=== PATIENT | female | born 1985 | race Caucasian/White ===

== ENCOUNTER 2020-01-08 09:09 | Emergency (ER) | payer MEDICAID, SELFPAY ==
[2020-01-08 09:14] VITALS: BP 131/86; PULSE 90; RESP 15; TEMP 36.8; O2SAT 98
[2020-01-08] MEDS: Tetracaine 0.5% 4 ML BTL (09:19)
[2020-01-08] MEDS: Fluorescein STRIPS 100/BOX 1 MG (09:19)
[2020-01-08] MEDS: Balanced Salt Solution 15 ML BTL (09:19)
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
[2020-01-08] MEDS: Erythromycin Ophth Oint 3.5 GM TUBE OS (10:19)
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
== END 2020-01-08 12:26 | disposition home or self-care (01) ==
PROVIDERS: Emergency Provider Physician Assistant
DX: S05.01XA Injury of conjunctiva and corneal abrasion without foreign body, right eye, initial encounter (principal); W55.42XA Struck by pig, initial encounter
CPT/HCPCS: 99284; 70486; 99283

== ENCOUNTER 2020-08-11 21:49 | Emergency (ER) | payer MEDICAID, SELFPAY ==
[2020-08-11 22:08] VITALS: BP 129/85; PULSE 129; RESP 22; TEMP 36.5; O2SAT 99
[2020-08-11 22:37] LABS: Abs Immature Grans 0.08 10^3/uL (0.0-0.06); Absolute Basophil Count 0.05 10^3/uL (0.0-0.2); Absolute Eosinophil Count 0.03 10^3/uL (0.0-0.7); Absolute Lymphocyte Count 2.42 10^3/uL (1.2-3.4); Absolute Monocyte Count 0.55 10^3/uL (0.1-0.8); Absolute Neutrophil Count 7.78 10^3/uL (1.2-6.7); Basophils % 0.5; Eosinophils % 0.3; HCT 41.1 % (36.0-46.0); HGB 13.7 g/dL (11.2-15.7); Immature Grans % 0.7; Lymphocytes % 22.2; MCH 30.7 pg (27.0-33.0); MCHC 33.3 % (32.0-36.0); MCV 92.2 fL (80-95); MPV 9.9 fL (8.0-11.0); Neutrophils % 71.3; Nucleated RBC 0 %; Platelet Count 335 10^3/uL (130-400); RBC 4.46 10^6/uL (3.93-5.22); RDW-SD 43.6 fL; WBC 10.91 10^3/uL (4.4-10.8)
[2020-08-11] MEDS: ACETAMINOPHEN 1,000 MG/100 ML BTL 400 MG IVPB (22:37)
[2020-08-11 22:49] LABS: Bilirubin Negative (Negative); Blood Negative (Negative); Clarity Clear (Clear); Glucose Negative (Negative); Ketones Negative (Negative); Leukocyte Esterase Negative (Negative); Nitrite Negative (Negative); Specific Gravity <= 1.005 (1.005-1.025); Urobilinogen 0.2 EU/dL (Up TO 0.2)
[2020-08-11 22:51] LABS: ALT 32 U/L (14-59); AST 27 U/L (15-37); Albumin 4.2 g/dL (3.4-5.0); Alkaline Phosphatase 90 U/L (46-116); Anion Gap 12.1 mmol/L (3-11); BUN 9 mg/dL (7-18); Bilirubin, Total 0.5 mg/dL (0.2-1.0); CO2 23.9 mmol/L (21.0-32.0); CREATININE 0.9 mg/dL (0.55-1.02); Calcium 8.4 mg/dL (8.5-10.1); Chloride 109 mmol/L (98-107); ETHANOL BLOOD 199.7 mg/dL (<3); Glucose 104 mg/dL (74-106); Lipase 86 U/L (73-393); Potassium 3.8 mmol/L (3.5-5.1); Sodium 145 mmol/L (136-145); Total Protein 7.7 g/dL (6.4-8.2)
[2020-08-11] MEDS: Normal Saline - Diluent 50 ML VIAL IV (22:55)
[2020-08-11] MEDS: Omnipaque 350 MG/ML 100 ML BTL IJ (22:56)
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
[2020-08-12 00:41] VITALS: BP 117/75; PULSE 94; RESP 16; TEMP 36.6; O2SAT 96
--- NOTE | 2020-08-12 00:43 | NUR.NOTE ---
Pt remains in c-collar, A&Ox3. Awaiting transport to [facility] via [facility].
== END 2020-08-12 00:55 | disposition short-term general hospital (02) ==
LOC: ER 08-12 00:43
PROVIDERS: Emergency Provider Student in an Organized Health Care Education/Training Program
DX: S06.6X0A Traumatic subarachnoid hemorrhage without loss of consciousness, initial encounter (principal); M25.552 Pain in left hip; M54.2 Cervicalgia; Y04.2XXA Assault by strike against or bumped into by another person, initial encounter; Y30.XXXA Falling, jumping or pushed from a high place, undetermined intent, initial encounter
CPT/HCPCS: 80053; 81025; 83690; 96365; 99291; 70450; 70486; 71045; 72125; 74177; 80320; 81003; 85025; J0131; J3490

== ENCOUNTER 2021-07-26 01:16 | Emergency (ER) | payer MEDICAID, SELFPAY ==
[2021-07-26 01:21] VITALS: BP 128/83; PULSE 87; RESP 18; TEMP 36.8; O2SAT 99
--- NOTE | 2021-07-26 01:30 | DI.CT_ITS ---
Exam(s) CT RENAL COLIC WO EXAM: CT RENAL COLIC WO CLINICAL HISTORY: left flank pain. TECHNIQUE: Imaging Protocol: Axial computed tomography images with coronal and sagittal reformatted images were created and reviewed. CONTRAST MATERIAL: Noncontrast COMPARISON: CT CT ABDOMEN PELVIS W from 08/11/2020 FINDINGS: ABDOMEN: Lung Bases: Normal where visualized. Liver: Normal attenuation. No measurable mass. Gallbladder and biliary tract: No radiodense calculus or dilation. Pancreas: Normal density, no calcifications or inflammatory process. Spleen: Normal. Kidneys: Normal size, contour and axis. No radiodense stones or obstructive uropathy. No masses seen. Adrenal glands: No masses seen. Abdominal Aorta: Abdominal portion non-dilated. Soft tissues: Unremarkable. PELVIS: Bladder: Symmetric distention, no gross wall thickening. Bowel: No obstruction or bowel wall thickening. Peritoneal cavity: No ascites or abscess collection. No free air. Reproductive: Uterus normal size. High-density material air material around the left ovary could ind icate ruptured ovarian cyst. The left ovary appeared normal in the prior exam. Bones: Within normal limits. IMPRESSION: High-density material around the left ovary may represent hemorrhagic cyst. Torsion and ectopic preg maximo not excluded. Pelvic pelvic ultrasound recommended for further evaluation. RADIATION DOSE DELIVERED: 712.57mGy.cm Total DLP DATA REPOSITORY: All CT scans at this facility are submitted to the National Radiology Data Registry (NRDR) Dose Index Registry (DIR) with the [employer] (A[employer]). RADIATION OPTIMIZATION: All CT scans at this facility use at least one of these dose optimization te chniques: automated exposure control; mA and/or kV adjustment per patient size (includes targeted exa ms where dose is matched to clinical indication); or iterative reconstruction.
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
[2021-07-26 01:46] LABS: Abs Immature Grans 0.04 10^3/uL (0.0-0.06); Absolute Basophil Count 0.03 10^3/uL (0.0-0.2); Absolute Eosinophil Count 0.15 10^3/uL (0.0-0.7); Absolute Lymphocyte Count 3.27 10^3/uL (1.2-3.4); Absolute Monocyte Count 0.55 10^3/uL (0.1-0.8); Absolute Neutrophil Count 5.36 10^3/uL (1.2-6.7); Basophils % 0.3; Eosinophils % 1.6; HCT 37.2 % (36.0-46.0); HGB 12.6 g/dL (11.2-15.7); Immature Grans % 0.4; Lymphocytes % 34.8; MCH 29.5 pg (27.0-33.0); MCHC 33.9 % (32.0-36.0); MCV 87 fL (80-95); Monocytes % 5.9; Platelet Count 341 10^3/uL (130-400); RBC 4.27 10^6/uL (3.93-5.22); RDW 12.7 % (11.7-14.6); RDW-SD 40.3 fL
[2021-07-26] MEDS: Ondansetron 4 MG/2 ML VIAL IVP (01:54)
[2021-07-26] MEDS: Ketorolac 15 MG/ML VIAL IVP ×2 (01:55→06:20)
[2021-07-26] MEDS: Normal Saline 1,000 ML 1000 ML IV (01:55)
[2021-07-26 01:59] LABS: ALT 28 U/L (14-59); AST 17 U/L (15-37); Albumin 3.8 g/dL (3.4-5.0); Alkaline Phosphatase 71 U/L (46-116); Anion Gap 9.8 mmol/L (3-11); BUN 16 mg/dL (7-18); Bilirubin, Direct 0.1 mg/dL (0.0-0.2); Bilirubin, Total 0.6 mg/dL (0.2-1.0); CO2 24.2 mmol/L (21.0-32.0); CREATININE 0.8 mg/dL (0.55-1.02); Calcium 8.4 mg/dL (8.5-10.1); Chloride 110 mmol/L (98-107); Glucose 101 mg/dL (74-106); Lipase 80 U/L (73-393); Magnesium 1.8 mg/dL (1.8-2.4); Potassium 3.8 mmol/L (3.5-5.1); Sodium 144 mmol/L (136-145); Total Protein 6.9 g/dL (6.4-8.2)
[2021-07-26 02:22] LABS: Bilirubin Small (Negative); Blood Large (Negative); Clarity Cloudy (Clear); Glucose Negative (Negative); Ketones Trace mg/dL (Negative); Leukocyte Esterase Negative (Negative); Nitrite Positive (Negative); Specific Gravity >= 1.030 (1.005-1.025); pH 5.5 (5-8)
[2021-07-26 02:25] LABS: C & S Indicated? Yes
[2021-07-26 02:26] LABS: RBC >50 HPF (0-2)
--- NOTE | 2021-07-26 03:54 | DI.VRAD_ITS ---
Addendum created by Helder Zamora MD on 07/26/2021 4:01:54 AM EDT: Left adnexa/ovary measures up to 5.8x 4.8 x 3.8 cm in AP, superior to inferior and medial to lateral dimensions respectively Addendum created by Helder Zamora MD on 07/26/2021 3:54:57 AM EDT: THIS REPORT CONTAINS FINDINGS THAT MAY BE CRITICAL TO PATIENT CARE. The findings were verbally communicated via telephone conference with Connor Toro at 3:54 AM EDT on 07/26/2021. The findings were acknowledged and understood. Initial report created on 07/26/2021 3:53:26 AM EDT: PROCEDURE INFORMATION: Exam: CT Abdomen And Pelvis Without Contrast Exam date and time: 07/26/2021 2:11 AM Age: 36 years old Clinical indication: Patient HX: L flank pain increasing TECHNIQUE: Imaging protocol: Computed tomography of the abdomen and pelvis without contrast. Radiation optimization: All CT scans at this facility use at least one of these dose optimization techniques: automated exposure control; mA and/or kV adjustment per patient size (includes targeted exams where dose is matched to clinical indication); or iterative reconstruction. COMPARISON: CT ABDOMEN PELVIS W 08/11/2020 11:08 PM FINDINGS: Liver: Normal. No mass. Gallbladder and bile ducts: Normal. No calcified stones. No ductal dilation. Pancreas: Normal. No ductal dilation. Spleen: Normal. No splenomegaly. Adrenal glands: Normal. No mass. 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 Stomach and bowel: . No obstruction. Question mild mucosal thickening. Appendix: No evidence of appendicitis. Intraperitoneal space: No free air. No significant fluid collection. Vasculature: No abdominal aortic aneurysm. Lymph nodes: . No enlarged lymph nodes. Urinary bladder: Unremarkable as visualized. Reproductive: Abnormally enlarged left adnexa with areas of increased attenuation Bones/joints: Unremarkable. No acute fracture. Soft tissues: Unremarkable. IMPRESSION: Abnormal left adnexa with enlargement and areas of increased attenuation as described. Ovarian torsion not excluded. Differential possibilities include PID/hemosalpinx/ectopic . Clinical correlation recommended. 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 Correlate for mild enteritis Dictated and Authenticated by: Helder Zamora MD. Ordering:KISHA Ryan MD
--- NOTE | 2021-07-26 07:15 | DI.US_ITS ---
Exam(s) US PELVIS TRANSVAGINAL EXAM: US PELVIS TRANSVAGINAL CLINICAL HISTORY: pelvic pain, mass on CT, ?torsion TECHNIQUE: Transabdominal and transvaginal imaging was performed using standard protocol. COMPARISON: CT CT RENAL COLIC WO from 07/26/2021 FINDINGS: KIDNEYS: Kidneys are symmetric in size. No evidence of renal calculi. No evidence of hydronephrosis. No renal mass or cyst identified. UTERUS: Anteverted. 7.9 x 3.5 x 5.5 cm. Endometrium: 5 millimeters, unremarkable. Myometrium: Unremarkable. Cervix: Unremarkable. OVARIES: Right: Cyst or mass: None. Left: Cyst or mass: Heterogeneous mixed echogenicity surrounds the left ovary which could be related to surrounding blood clot from ruptured hemorrhagic cyst versus PID with hemosalpinx. DOPPLER: Color: Symmetric and uniform flow to both ovaries. No hyperemia. Duplex: Normal ovarian arterial waveforms visualized. CUL-DE-SAC: Free fluid: Moderate quantity IMPRESSION: 1. Normal-appearing uterus with endometrial stripe within normal limits. 2. No evidence of ovarian torsion.Heterogeneous mixed echogenicity surrounds the left ovary which cou ld be related to surrounding blood clot from ruptured hemorrhagic cyst versus PID with hemosalpinx. DATA REPOSITORY:
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
--- NOTE | 2021-07-26 08:19 | ED.PROG_ITS ---
Date of service: 07/26/21 Time of Service: 08:19 Medical Decision Making Care signed out by Dr. Toro, please see his documentation regarding initial presentation and course. Plan at signout was to follow-up on ultrasound and gynecology recommendation. I spoke with Dr. Parikh -on-call telecom sales consultant who evaluated the patient and was present for ultrasound, ruptured ovarian cyst, no torsion. She recommends prescribing control levonrgest/estradiol/iron and discharge with outpatient follow-up. Plan to treat for urinary tract infection with Keflex. Imaging Data Radiologic Study: Imaging: Ultrasound (pelvis) Radiologist's impression: IMPRESSION: No sonographic evidence for ovarian torsion Complex echoes/echogenic focus in the left adnexal region and moderate fluid in the cul-de-sac.? Patient with negative test by history.? Differential possibilities as previously described such as PID/hemosalpinx versus clot/recently ruptured hemorrhagic cyst.? Lab Data Lab results reviewed: Yes I reviewed the patient's lab results. Labs: 07/26/21 02:05 Urine - Reflex from Ua Urine Culture - Pending Laboratory Tests Range/Units 07/26/21 07/26/21 07/26/21 01:30 01:30 02:05 WBC (4.4-10.8) 10^3/uL 9.40 RBC (3.93-5.22) 10^6/uL 4.27 Hgb (11.2-15.7) g/dL 12.6 Hct (36.0-46.0) % 37.2 MCV (80-95) fL 87 MCH (27.0-33.0) pg 29.5 MCHC (32.0-36.0) % 33.9 RDW (11.7-14.6) % 12.7 Plt Count (130-400) 10^3/uL 341 MPV (8.0-11.0) fL 10.0 Immature Gran % 0.4 Neutrophils % 57.0 Lymphocytes % 34.8 Monocytes % 5.9 Eosinophils % 1.6 Basophils % 0.3 Nucleated RBC % (0.0-0.3) % 0.0 Absolute Neutrophils (1.2-6.7) 10^3/uL 5.36 Absolute Lymphocytes (1.2-3.4) 10^3/uL 3.27 Absolute Monocytes (0.1-0.8) 10^3/uL 0.55 Absolute Eosinophils (0.0-0.7) 10^3/uL 0.15 Absolute Basophils (0.0-0.2) 10^3/uL 0.03 Sodium (136-145) mmol/L 144 Potassium (3.5-5.1) mmol/L 3.8 Chloride (98-107) mmol/L 110 H Carbon Dioxide (21.0-32.0) mmol/L 24.2 Anion Gap (3-11) mmol/L 9.8 BUN (7-18) mg/dL 16 Creatinine (0.55-1.02) mg/dL 0.8 Estimated GFR/1.73 m2 (mL/min/1.73m2) >= 60.00 Glucose (74-106) mg/dL 101 Calcium (8.5-10.1) mg/dL 8.4 L Magnesium (1.8-2.4) mg/dL 1.8 Total Bilirubin (0.2-1.0) mg/dL 0.6 Conjugated Bilirubin (0.0-0.2) mg/dL 0.1 AST (15-37) U/L 17 ALT (14-59) U/L 28 Alkaline Phosphatase (46-116) U/L 71 Total Protein (6.4-8.2) g/dL 6.9 Albumin (3.4-5.0) g/dL 3.8 Lipase (73-393) U/L 80 Urine Color (Yellow) Red Urine Clarity (Clear) Cloudy Urine pH (5-8) 5.5 Ur Specific [place] (1.005-1.025) >= 1.030 H Urine Protein (Negative) mg/dL >=300 H Urine Ketones (Negative) mg/dL Trace H Urine Blood (Negative) Large H Urine Nitrite (Negative) Positive H Urine Bilirubin (Negative) Small H Urine Urobilinogen (Up TO 0.2) EU/dL 1.0 H Ur Leukocyte Esterase (Negative) Negative Urine RBC (0-2) HPF >50 H Urine WBC (0-5) HPF Ur Epithelial Cells Not Applicable Urine Crystals Not Applicable Urine Bacteria Not Applicable Urine Mucus Not Applicable Ur Culture Indicated? Yes Urine Glucose (Negative) mg/dL Negative Sign Out Sign Out Data: Sign Out Comment: 1 week lower left abdominal discomfort acutely worsened overnight, ct showed enlarged left ovary. Seen by christin, u/s became available, is pending u/s and obgyn recs. Also has a uti on UA Last updated by Connor Toro MD at 07/26/21 07:27 Discharge Plan Disposition Patient Disposition: HOME Condition: Stable Discharge Details Clinical Impression: Enlarged ovary, UTI (urinary tract infection), Ovarian cyst rupture Primary Care Provider: None,None ED Provider: Javier Mcmahan Home Meds and New Rx's Prescriptions: New levonorgest-eth.estradiol-iron 0.1 mg-0.02 mg (21)/36.5 mg(7) tablet 1 tab PO DAILY Qty: 84 0RF cephalexin 500 mg tablet 500 mg PO BID Qty: 12 0RF Discharge Instructions Instructions: Urinary Tract Infection in Women (ED), Ruptured Ovarian Cyst (ED) Additional Instructions: Please take ibuprofen over the counter. Take 600mg by mouth every 6 hours as needed for pain. Please take full course of antibiotic as prescribed. Please follow-up with gynecology. Call for an appointment. Return to the emergency department immediately for any worsening or new concerning symptoms. Referrals: [facility] [Provider Group]
[2021-07-26 08:24] VITALS: BP 99/56; PULSE 65; RESP 14; TEMP 36.4; O2SAT 98
--- NOTE | 2021-07-26 08:48 | DI.VRAD_ITS ---
PROCEDURE INFORMATION: Exam: US Nonobstetric Pelvis; Complete Exam date and time: 07/26/2021 7:53 AM Age: 36 years old Clinical indication: Other: Pelvic pain left sided TECHNIQUE: Imaging protocol: Transabdominal pelvic nonobstetric ultrasound. Complete exam. Real time ultrasound with image documentation. COMPARISON: CT RENAL COLIC WO 07/26/2021 2:11 AM FINDINGS: Uterus: Uterus is normal. Endometrial stripe is normal. Right ovary/adnexa: Ovary is normal. No mass. Normal blood flow. Left ovary/adnexa: Left adnexa demonstrates complex echoes surrounding the left ovary measuring up to 5 x 1.8 x 3.2 cm Ovary is normal. Normal blood flow. Intraperitoneal space: Moderate cul-de-sac fluid. Urinary bladder: Normal. IMPRESSION: No sonographic evidence for ovarian torsion Complex echoes/echogenic focus in the left adnexal region and moderate fluid in the cul-de-sac. Patient with negative test by history. Differential possibilities as previously described such as PID/hemosalpinx versus clot/recently ruptured hemorrhagic cyst. Dictated and Authenticated by: Helder Zamora MD. Ordering:KISHA Ryan MD
[2021-07-26 09:28] VITALS: BP 99/56; PULSE 65; RESP 14; TEMP 36.4; O2SAT 98
== END 2021-07-26 09:27 | disposition home or self-care (01) ==
PROVIDERS: Emergency Medicine; Emergency Provider Student in an Organized Health Care Education/Training Program
DX: R10.32 Left lower quadrant pain (principal); N83.8 Other noninflammatory disorders of ovary, fallopian tube and broad ligament; N39.0 Urinary tract infection, site not specified; R10.2 Pelvic and perineal pain
CPT/HCPCS: 80053; 81025; 83690; 96361; 96365; 96366; 96375; 99284; 74176; 76830; 76856; 81003; 81015; 82248; 83735; 85025; 87086; J0696; J1885; J2405

== ENCOUNTER 2024-06-11 16:49 | Emergency (ER) | payer MEDICAID, SELFPAY ==
[2024-06-11 16:52] VITALS: BP 127/84; PULSE 77; RESP 16; TEMP 36.8; O2SAT 100
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
== END 2024-06-11 17:39 | disposition home or self-care (01) ==
LOC: ER 17:38
PROVIDERS: Emergency Provider Nurse Practitioner Family
DX: S01.01XA Laceration without foreign body of scalp, initial encounter (principal); W22.8XXA Striking against or struck by other objects, initial encounter; Y99.0 Civilian activity done for income or pay
CPT/HCPCS: 12001